=== PATIENT | male | born 1995 | race African-American/Black ===

== ENCOUNTER 2023-01-26 14:22 | Emergency (ER) | payer SELFPAY ==
[~2023-01-26] VITALS: Ht 172.7 cm; Wt 80.0 kg
[2023-01-26 14:37] VITALS: BP 170/108; PULSE 118; RESP 18; TEMP 98.8; O2SAT 100
[2023-01-26 16:14] LABS: BASOPHILS % 0.3 % (0.0-2.0); EOSINOPHILS % 0.1 % (0.0-5.0); HEMATOCRIT. 42.2 % (42.0-52.0); LYMPHOCYTES % 9.9 % (20.0-50.0); MEAN CORPUSCULAR HEMOGLOBIN 27.2 pg (28.0-32.0); MEAN CORPUSCULAR HGB CONC 33.1 g/dL (31.0-37.0); MEAN CORPUSCULAR VOLUME 82.1 fL (80.0-94.0); MONOCYTES % 7.9 % (2.0-8.0); NEUTROPHILS % 81.8 % (40.0-76.0); PLATELET 258 x1000/uL (130-400); RED BLOOD CELL COUNT 5.14 mill/uL (4.7-6.1); RED CELL DISTRIBUTION WIDTH 17.2 % (11.6-14.6); WHITE BLOOD COUNT 9.1 x1000/uL (4.5-11.0)
[2023-01-26 16:33] LABS: ALANINE AMINOTRANSFERASE 72 IU/L (10-49); ALBUMIN 4.9 g/dL (3.2-4.8); ASPARTATE AMINOTRANSFERASE 80 IU/L (<34); BILIRUBIN TOTAL 0.5 mg/dL (0.1-1.0); CALCIUM 10.7 mg/dL (8.7-10.4); CARBON DIOXIDE 30 mEq/L (21-32); CHLORIDE 101 mEq/L (98-107); CREATININE 0.9 mg/dL (0.6-1.3); GLUCOSE 62 mg/dL (70-105); POTASSIUM 4.1 mEq/L (3.5-5.1); SODIUM 138 mEq/L (136-145); UREA NITROGEN BLOOD 11 mg/dL (9-23)
[2023-01-26 16:42] LABS: ETHANOL BLOOD < 10 mg/dL (<10)
[2023-01-26] MEDS ORDERED: LEVETIRACETAM 500MG/5ML CUP PO ONE (17:00)
== END 2023-01-26 19:59 | disposition home or self-care (01) ==
LOC: ER 14:45
DX: R56.9 Unspecified convulsions (principal)
CPT/HCPCS: 36415; 80053; 80320; 85025; 99283; G0480